=== PATIENT | female | born 1990 | race Caucasian/White ===

== ENCOUNTER 2021-03-19 22:26 | Emergency (ER) | payer OTHER ==
[~2021-03-19] VITALS: Ht 167.6 cm; Wt 82.0 kg
[2021-03-19] MEDS ORDERED: HYDROCODONE/ACETAMINOPHEN 5/325MG TABLET PO STA (22:37)
[2021-03-19] MEDS ORDERED: KETOROLAC 60MG/2ML VIAL IM STA (22:37)
[2021-03-19 23:14] VITALS: BP 123/93
[2021-03-20] MEDS ORDERED: HYDR-4001 MT (01:01)
[2021-03-20] MEDS ORDERED: IBUP-2029 MT (01:01)
== END 2021-03-20 01:17 | disposition home or self-care (01) ==
LOC: ER 22:26
DX: S82.891A Other fracture of right lower leg, initial encounter for closed fracture (principal); W01.0XXA Fall on same level from slipping, tripping and stumbling without subsequent striking against object, initial encounter; Y93.89 Activity, other specified; Y92.89 Other specified places as the place of occurrence of the external cause; Y99.8 Other external cause status
CPT/HCPCS: 29515; 73610; 81025; 96372; 99284; J1885